=== PATIENT | female | born 1935 | race Caucasian/White ===

== ENCOUNTER → 2016-11-08 | Outpatient (CLI) | payer OTHER ==
[~2016-11-08] MED LIST: AMLODIPINE BESY10 MG PO; ASPIRIN81 MG PO; AZITHROMYCIN250 MG PO; BENAZEPRIL HCL40 MG PO; BETIMOL5 ML OP; DAYPRO600 M1 PO; K-DUR20 ME1 PO; LASIX20 MG PO; LIPITOR40 MG PO; LOTREL 10-40 M1 EACH PO; MOBIC PO; NON-ASPIRIN PA325 M1 PO; PROTONIX PO; RANITIDINE HCL150 M1 PO; SEROQUEL XR50 MG PO; TIMOPTIC 0.5% OP5 M1 OD; VITAMIN B-121000 MCG PO; XALATAN; XALATAN OP
--- NOTE | ~2016-11-08 | CR71 ---
[facility] A Service of [facility] & [facility] RADIOLOGY TEXT RESULTS PATIENT: CHRISTIAN SÁNCHEZ LOCATION: [facility] : 35 UNIT #: [id number] AGE: [address]: Nathaniel Olvera MD SEX: F ORDER DR: [id number] [facility] [address]. [place], [place] [address] [id number] O MR#: [id number] Acc #: [id number] NAME: CHRISTIAN SÁNCHEZ : 1935 SEX: F STUDY DATE/TIME: 11/08/2016 13:24 UNIT: [facility] ROOM: STUDY DESCRIPTION: CR Chest Single View Attending Physician: Nathaniel Olvera M.D. Ordering Physician: Nathaniel Olvera M.D. Primary Care Physician: Darinel Ramírez M.D. MEDICAL IMAGING REPORT This report is preliminary unless electronic signature is present EXAM Portable chest radiograph INDICATION Evaluate for pneumothorax following lung biopsy FINDINGS No pneumothorax is identified post right lung biopsy, there is stable blunting of the right costophrenic angle. No right lung mass. Similar findings were present on prior CT from October 02, 2016, extensive granulomatous changes seen throughout both lungs. Left lung is otherwise clear. Heart size is within normal limits. There is volume loss within the right hemithorax again no pneumothorax is seen Dictated by... Florida Potter M.D. THIS IS AN ELECTRONICALLY VERIFIED REPORT Florida Potter M.D. at 11/08/2016 5:00 PM AFF/rnr TD: 11/08/2016 15:13 JOB #: [id number] MEDICAL IMAGING REPORT COPY
--- NOTE | ~2016-11-08 | CT134 ---
[facility] A Service of [facility] & [facility] RADIOLOGY TEXT RESULTS PATIENT: CHRISTIAN SÁNCHEZ LOCATION: [facility] : 35 UNIT #: [id number] AGE: [address]: Nathaniel Olvera MD SEX: F ORDER DR: [id number] [id number] [facility]. [place], [place] [address] [id number] O MR#: [id number] Acc #: [id number] NAME: CHRISTIAN SÁNCHEZ : 1935 SEX: F STUDY DATE/TIME: 11/08/2016 10:18 UNIT: [facility] ROOM: STUDY DESCRIPTION: CT Guide Attending Physician: Nathaniel Olvera M.D. Ordering Physician: Nathaniel Olvera M.D. Primary Care Physician: Darinel Ramírez M.D. MEDICAL IMAGING REPORT This report is preliminary unless electronic signature is present EXAM CT-guided lung biopsy HISTORY Ms. Sánchez is an 81-year-old lady with a hypermetabolic lung mass. She has been referred for biopsy of this lung mass. TECHNIQUE This CT exam was performed with one or more of the following radiation dose reduction techniques: automatic exposure control, adjustment of mA and/or kV according to patient size, and iterative reconstruction. PROCEDURE The risks, benefits, and alternatives to the procedure were explained to the patient, and a signed, informed consent was obtained. She was placed in the left lateral decubitus position. Preliminary CT scan was performed through the region of interest. An appropriate site overlying the lesion was selected. The overlying skin was marked. Patient is prepped and draped in usual sterile fashion. Time-out was performed as per protocol. Skin and subcutaneous tissues were anesthetized with buffered lidocaine. Anesthesia needle was left in place. Repeat CT scan confirmed appropriate trajectory of the needle and I subsequently exchanged for a 17-gauge coaxial needle which was advanced into the lesion. Repeat CT scan confirmed appropriate positioning of the needle. At this point, 2 core samples were obtained using an 18-gauge BioPince biopsy gun. Needle was then removed and manual pressure was applied until hemostasis was obtained. Patient tolerated the procedure well. There were no immediate complications. A final CT scan did not show any evidence of pneumothorax or significant postbiopsy hemorrhage. IMPRESSION Technically successful CT-guided lung biopsy as noted above. CT was used during the procedure and permanent images were saved. Please note patient STS. [facility] A Service of [facility] RADIOLOGY TEXT RESULTS PATIENT: CHRISTIAN SÁNCHEZ [id number] UNIT #: [id number] AGE: [address]: Nathaniel Olvera MD SEX: F ORDER DR: did receive conscious sedation consisting 1.5 mg of Versed and 50 mcg of Fentanyl and continuous monitoring was provided throughout the procedure. Dictated by... Florida Potter M.D. THIS IS AN ELECTRONICALLY VERIFIED REPORT Florida Potter M.D. at 11/09/2016 5:24 PM AFF/aa TD: 11/09/2016 12:07 JOB #: [id number] MEDICAL IMAGING REPORT COPY
--- NOTE | ~2016-11-08 | CR71 ---
[facility] A Service of [facility] & [facility] RADIOLOGY TEXT RESULTS PATIENT: CHRISTIAN SÁNCHEZ LOCATION: [facility] : 35 UNIT #: [id number] AGE: [address]: Nathaniel Olvera MD SEX: F ORDER DR: [id number] [facility] [address] [place], [place] [address] [id number] O MR#: [id number] Acc #: [id number] NAME: CHRISTIAN SÁNCHEZ : 1935 SEX: F STUDY DATE/TIME: 11/08/2016 10:58 UNIT: [facility] ROOM: STUDY DESCRIPTION: CR Chest Single View Attending Physician: Nathaniel Olvera M.D. Ordering Physician: Nathaniel Olvera M.D. Primary Care Physician: Darinel Ramírez M.D. MEDICAL IMAGING REPORT This report is preliminary unless electronic signature is present EXAM PA chest 11/08/2016 COMPARISON 11/16/2013. HISTORY Status post biopsy. FINDINGS An AP view is obtained. Cardiac size in the patient is stable. Vascular pattern is normal. Lungs are remarkable for the mass in the right lower lobe. This is present previously as well. No pneumothorax is seen. CONCLUSION Status post right lower lobe lung mass biopsy. No acute process. Dictated by... William Foote M.D. THIS IS AN ELECTRONICALLY VERIFIED REPORT William Foote M.D. at 11/09/2016 4:45 PM MIS/sohail TD: 11/08/2016 13:26 JOB #: [id number] MEDICAL IMAGING REPORT COPY
[2016-11-08 08:52] LABS: HEMATOCRIT 41.6 % (35.0-45.0); HEMOGLOBIN 13.5 gm/dL (12.0-16.0); MEAN CELL VOLUME 81.9 FL (83-96); MEAN CORPUSCULAR HEMOGLOBIN 26.6 PG (28-34); MEAN CORPUSCULAR HGB CONC 32.4 g/dL (30-36); MEAN PLATELET VOLUME 10.9 FL (6.5-11.5); PARTIAL THROMBOPLASTIN TIME 24.9 SECONDS (23.5-31.3); PROTHROMBIN TIME (PATIENT) 10.5 SECONDS (9.6-11.5); RED BLOOD COUNT 5.07 X10e (3.90-5.30); RED CELL DISTRIBUTION WIDTH 17.1 % (11.0-15.5); WHITE BLOOD COUNT 9.8 X10e3 (4.0-10.5)
== END | disposition home or self-care (01) ==
LOC: CIVR 08:04
PROVIDERS: Internal Medicine
DX: C34.31 Malignant neoplasm of lower lobe, right bronchus or lung (principal); J43.9 Emphysema, unspecified; Z90.49 Acquired absence of other specified parts of digestive tract; Z90.710 Acquired absence of both cervix and uterus
CPT/HCPCS: 36415; 71010; 77012; 85027; 85610; 85730; 88305; 88341; 88342; J2250; J3010

== ENCOUNTER → 2017-02-07 | Outpatient (CLI) | payer OTHER ==
--- NOTE | ~2017-02-07 | CT57 ---
[facility] A Service of [facility] & [facility] RADIOLOGY TEXT RESULTS PATIENT: CHRISTIAN SÁNCHEZ LOCATION: [facility] : 35 UNIT #: [id number] AGE: [address]: Fredi Escudero MD SEX: F ORDER DR: [id number] [address] [address] [id number] O MR#: [id number] [facility] #: [id number] NAME: CHRISTIAN SÁNCHEZ : 1935 SEX: F STUDY DATE/TIME: 02/07/2017 12:41 UNIT: [facility] ROOM: STUDY DESCRIPTION: CT Chest Wo Cont Attending Physician: Fredi Escudero M.D. Referring Physician: Fredi Escudero M.D. Ordering Physician: Fredi Borges M.D. Primary Care Physician: Darinel Ramírez M.D. MEDICAL IMAGING REPORT This report is preliminary unless electronic signature is present. EXAM CT chest without contrast 02/07/2017 1241 hours HISTORY 81-year-old with history of lung carcinoma status post radiation therapy. Evaluate response to therapy. COMPARISON PET CT 10/24/[address] chest 10/02/2016 from [facility]. TECHNIQUE Helical noncontrasted images were obtained from the thoracic inlet through the adrenal glands. Sagittal and coronal reconstructions were performed. No contrast was administered. Total exam DLP 469 mGy-cm. This CT exam was performed with one or more of the following radiation dose reduction techniques: Automatic exposure control, adjustment of mA and/or kV according to patient size, and iterative reconstruction. FINDINGS Noncontrasted images through the thoracic inlet demonstrate no thyroid mass or supraclavicular adenopathy. Images through the chest demonstrate aortic ectasia measuring up to 3.6 cm. The pulmonary arteries are prominent in size but unchanged. There is no pathologic mediastinal, hilar or axillary adenopathy. There are benign calcified mediastinal and hilar lymph nodes. Lung window images demonstrate underlying emphysematous change. There is a persistent band-like density extending from the medial right upper chest, contiguous with the ovoid mass in the superior segment of the right lower lobe which measures up to 4.2 x 3.1 cm, previously 4.4 x 3.1 cm on 10/24/2016 and 4.6 x 3.3 cm on 10/02/2016. This mass contains central STS. [facility] A Service of [facility] RADIOLOGY TEXT RESULTS PATIENT: CHRISTIAN SÁNCHEZ LOCATION: [facility] : 35 UNIT #: [id number] AGE: [address]: Fredi Escudero MD SEX: F ORDER DR: rounded calcifications, similar to prior exam. There is a small amount of right pleural fluid or pleural thickening, decreased from prior exam. Small subpleural calcifications in the right upper lobe are unchanged and may be calcified. There are small, calcified nodules in the lingula and left lower lobe. There is new minimal tree-in-bud density laterally at the left base on image 45 through 49, which could represent acute infection. This does not appear mass-like. There is no left effusion. Limited views through the upper abdomen demonstrate mild thickening of both adrenal glands, without discrete mass. A benign etiology is favored. Right upper pole renal cyst is present. There is no definite liver lesion. Bone window images demonstrate stable degenerative changes in the spine. There are no lytic or blastic lesions. IMPRESSION 1. There is a persistent ovoid mass in the superior segment of the right lower lobe which contains some calcifications that are unchanged. It measures 4.2 x 3.1 cm, similar to 10/24/2016 where it measured 4.4 x 3.1 cm, and decreased from 10/02/2016 where it measured 4.6 x 3.3 cm. There is a small amount of right pleural fluid or pleural thickening, slightly improved. 2. There are small nodules in both lungs, most of which appear to be calcified on this exam. No definite new nodules are seen. 3. There is a small focus of tree-in-bud density laterally at the extreme left lung base. The morphology strongly favors the presence of acute infection. 4. No pathologic adenopathy. 5. No bone lesions are seen. Dictated by... Larissa Collins M.D. THIS IS AN ELECTRONICALLY VERIFIED REPORT Larissa Collins M.D. at 02/08/2017 9:28 AM CORI/ellie TD: 02/08/2017 03:02 JOB #: [id number] MEDICAL IMAGING REPORT Page 1 of 1
== END | disposition home or self-care (01) ==
LOC: SCT 12:31
DX: C34.31 Malignant neoplasm of lower lobe, right bronchus or lung (principal); R91.8 Other nonspecific abnormal finding of lung field; J98.4 Other disorders of lung
CPT/HCPCS: 71250